=== PATIENT | female | born 1965 | race Caucasian/White ===

== ENCOUNTER 2020-11-16 23:41 | Emergency (ER) | payer OTHER, BC ==
[~2020-11-16] VITALS: Ht 167.6 cm; Wt 89.8 kg
[2020-11-17] MEDS ORDERED: NEURONTIN300 MG PO (01:43)
[2020-11-17] MEDS ORDERED: NORCO 5-325 TA1 EACH PO (01:45)
== END 2020-11-17 02:19 | disposition home or self-care (01) ==
LOC: ED 23:41
DX: S16.1XXA Strain of muscle, fascia and tendon at neck level, initial encounter (principal); S40.011A Contusion of right shoulder, initial encounter; F41.9 Anxiety disorder, unspecified; G43.909 Migraine, unspecified, not intractable, without status migrainosus; Z88.8 Allergy status to other drugs, medicaments and biological substances; W18.30XA Fall on same level, unspecified, initial encounter
CPT/HCPCS: 51701; 70450; 72125; 73030; 99284-25; J1170; J2405